=== PATIENT | male | born 1995 ===

== ENCOUNTER 2023-02-17 23:16 | Emergency (ER) | payer OTHER ==
[~2023-02-17] VITALS: Ht 162.6 cm; Wt 54.0 kg
[2023-02-17 23:30] VITALS: TEMP 98.7
[2023-02-18 02:37] VITALS: BP 113/60; PULSE 90; RESP 18
== END 2023-02-18 02:38 | disposition home or self-care (01) ==
LOC: EMS 23:16
DX: R10.9 Unspecified abdominal pain (principal); F12.90 Cannabis use, unspecified, uncomplicated
CPT/HCPCS: 74176; 99284; Z7502